=== PATIENT | male | born 1955 | race Caucasian/White ===

== ENCOUNTER → 2016-12-11 | Outpatient (CLI) | payer OTHER ==
[~2016-12-11] MED LIST: DAILY MULTIPLE1 EAC1 PO; ENVARSUS XR0.75 MG PO; HYDROCODON-ACE1 EAC4 PO; INDERAL-DPS20 MG PO; KEFLEX-DPS500 MG PO; LUDENT FLUORID0.5 MG PO; MAG6464 MG PO; MONTELUKAST SOD10 MG PO; MYCELEX TROCHE10 MG PO; MYLICON DPS80 MG PO; PAXIL10 MG PO; VANCOCIN125 MG PO; ZANTAC DPS150 MG PO; ZORTRESS PO; ZYRTEC DPS10 MG PO
== END | disposition home or self-care (01) ==
LOC: PTH.S 12-10 15:15
DX: R19.7 Diarrhea, unspecified (principal); Z94.89 Other transplanted organ and tissue status